=== PATIENT | male | born 1970 | race Caucasian/White ===

== ENCOUNTER → 2021-02-02 | Outpatient (REF) | payer BC | LOC: M LAB REF 13:39 | PROVIDERS: ATTEND Nurse Practitioner Family | DX: E83.42 Hypomagnesemia (principal) ==

== ENCOUNTER → 2023-12-05 | Outpatient (CLI) | payer BC ==
[2023-12-05 13:16] LABS: FREE T4 1.06 NG/DL (0.89-1.76); THYROID STIMULATING HORMONE 2.688 uIU/ML (0.55-4.78)
== END ==
LOC: M LAB 11:51
PROVIDERS: ATTEND Nurse Practitioner Family
DX: R53.83 Other fatigue (principal)